=== PATIENT | female | born 1970 | race Caucasian/White ===

== ENCOUNTER 2019-10-29 20:02 | Inpatient (IN) | payer OTHER ==
[~2019-10-29] VITALS: Ht 167.6 cm; Wt 64.1 kg
[2019-10-29 20:07] VITALS: BP 143/72
--- NOTE | 2019-10-29 20:19 | NUR ---
PATIENT WAS GIVEN DIRECTION TO TAKE INHALE DEEP FOR 5 SECONDS AND EXHALE FOR 5 SECONDS. THIS HAS HELPED THE PATIENT WITH HER ANXIETY, TREMORS, AND CHEST PAIN. PATIENT EASILY DISTRACTED FROM ACTIVITY AND IS FREQUENTLY REMINDED TO CONTINUE.
[2019-10-29 20:23] LABS: BASO % 0.1 % (0.0-1.0); EOS % 0.1 % (1.0-4.0); HEMATOCRIT 41.7 % (37.0-47.0); HEMOGLOBIN 14.6 g/dl (12.0-16.0); LYMPH # 1.7 10*3/uL (1.3-4.4); MEAN CELL VOLUME 91.2 fl (81.0-99.0); MEAN CORPUSCULAR HGB 31.9 pg (27.0-31.0); MEAN PLATELET VOLUME 11.3 fl (9.6-12.3); MONO # 0.8 10*3/uL (0.1-1.0); MONO % 11.5 % (3.0-9.0); NEUT # 4.4 10*3/uL (2.3-7.9); PLATELET COUNT AUTOMATED 285 10*3/uL (130-400); RED BLOOD COUNT 4.57 10*6/uL (4.10-5.10); RED CELL DISTRI WIDTH 13.3 % (0-14.5)
[2019-10-29 20:35] LABS: ACT PARTIAL THROMBO TIME 23.3 SECONDS (20.0-32.1)
[2019-10-29 20:47] VITALS: BP 130/56
[2019-10-29 21:07] LABS: ALBUMIN 4.3 gm/dl (3.1-4.5); BUN 9 mg/dl (7-24); CHLORIDE 103 mmol/L (98-107); CREATININE 0.68 mg/dL (0.55-1.02); POTASSIUM 3.4 mmol/L (3.5-5.1); SGOT/AST 39 IU/L (3-35); SGPT/ALT 38 U/L (12-78); SODIUM 137 mmol/L (136-145); TOTAL PROTEIN 8.2 gm/dL (6.4-8.2)
[2019-10-29 21:10] LABS: ALKALINE PHOSPHATASE 56 U/L (45-117)
[2019-10-29 21:11] LABS: TROPONIN I < 0.015 ng/ml (<0.045)
--- NOTE | 2019-10-29 21:23 | NUR ---
PATIENT MEDICATED AND EDUCATED ON TRANSFER TO [facility]. PATIENT STATES THAT HE UNDERSTANDS. ALSO EDUCATED PATIENT ON NEED FOR URINE PER MD PATIENT STATES THAT HE UNDERSTANDS AND IS TRYING.
[2019-10-29 21:42] VITALS: BP 145/77
--- NOTE | 2019-10-29 21:43 | NUR ---
PATIENT IS MUCH MORE RELAXED NOW AFTER TAKING ATIVAN. NO CONCERNS ATT HIS TIME FROM THE PATIENT.
[2019-10-29 22:33] VITALS: BP 140/82
--- NOTE | 2019-10-29 22:33 | NUR ---
PATIENT RESTING IN BED WITH NO CONCERNS NOTED. PATIENT MUCH MORE RELXED AT THIS TIME.
[2019-10-30] VITALS: BP 131/66
--- NOTE | 2019-10-30 00:41 | NUR ---
ATTEMPTS MADE BY THIS RN TO ESTABLISH IV ACCESS IN PT RIGHT AND LEFT AC FOR CT TESTING.UNABLE TO ESTABLISH IV ACCESS AT THIS TIME.
[2019-10-30 01:30] VITALS: BP 131/66
--- NOTE | 2019-10-30 01:30 | NUR ---
A 49, admitted to , under the services of ZULEMA Maldonado DO with a diagnosis of CHEST PAIN OF UNCERTAIN ETIOLOGY. Chief complaint is MULTIPLE COMPLAINTS. Patient arrived via stretcher from ER. Monitor applied. Initial assessment completed. Vital signs taken and recorded. ZULEMA MALDONADO DO notified of admission to the unit. Orders received. See assessment for past medical history, medications and allergies. Patient and/or family oriented to unit. [facility] 4TH FLOOR visitation policy reviewed. Clothing/patient valuable form completed. JENNIFER HAQ
--- NOTE | 2019-10-30 01:45 | NUR ---
NOTIFIED [facility] OF NEW CONSULT
--- NOTE | 2019-10-30 02:30 | NUR ---
NOTIFIED DR. HAQ PATIENT IS UNABLE TO HAVE CTA. UNBALE TO GET A IV IN THE AC. NO NEW ORDERS RECEIVED. WILL CONTINUE TO MONITOR.
[2019-10-30 06:17] LABS: EOS % 0.6 % (1.0-4.0); HEMATOCRIT 37.5 % (37.0-47.0); HEMOGLOBIN 12.4 g/dl (12.0-16.0); LYMPH # 1.4 10*3/uL (1.3-4.4); LYMPH % 25.6 % (27.0-41.0); MEAN CELL VOLUME 94.2 fl (81.0-99.0); MEAN CORPUSCULAR HGB 31.2 pg (27.0-31.0); MEAN CORPUSCULAR HGB CONC 33.1 g/dl (33.0-37.0); MEAN PLATELET VOLUME 11.7 fl (9.6-12.3); MONO # 0.6 10*3/uL (0.1-1.0); MONO % 10.1 % (3.0-9.0); NEUT # 3.4 10*3/uL (2.3-7.9); NEUT % 63.5 % (47.0-73.0); PLATELET COUNT AUTOMATED 233 10*3/uL (130-400); RED BLOOD COUNT 3.98 10*6/uL (4.10-5.10); RED CELL DISTRI WIDTH 13.4 % (0-14.5); WHITE BLOOD COUNT 5.4 10*3/uL (4.8-10.8)
[2019-10-30 06:29] LABS: BUN 10 mg/dl (7-24); CHLORIDE 109 mmol/L (98-107); CHOLESTEROL 131 mg/dL (<200); CREATININE 0.46 mg/dL (0.55-1.02); HDL CHOLESTEROL 49 mg/dl (40-60); LDL CHOLESTEROL 74 mg/dL (9-159); PHOSPHOROUS 3.3 mg/dL (2.5-4.9); POTASSIUM 3.8 mmol/L (3.5-5.1); SODIUM 141 mmol/L (136-145); TRIGLYCERIDES 40 mg/dl (<150); VLDL CHOLESTEROL 8 mg/dL (6-40)
[2019-10-30] MEDS ORDERED: ASPIRIN CHEWABL81 MG PO (06:35)
--- NOTE | 2019-10-30 06:35 | NUR ---
MED REC UP TO DATE
[2019-10-30 07:41] LABS: VITAMIN D, 25-HYDROXY 36.1 ng/mL (30-100)
[2019-10-30 08:00] VITALS: BP 142/84
--- NOTE | 2019-10-30 08:30 | NUR ---
PT RESTING IN BED. VISITOR AT HER SIDE. NO C/O AT THIS TIME. TOLERATED ROUTINE MED WITH NO PROBLEM. CALL LIGHT IN REACH. SEE SHIFT ASSESSMENT.
--- NOTE | 2019-10-30 09:00 | NUR ---
Clinical Molecular Geneticist in to talk to patient. Patient states lives at home with jadyn. There are few steps in the home. Physician: non e Pharmacy: none Home health services: none Patient's level of ADLs: INDEPENDENT Patient has working utilities: all working DME: none Follow-up physician's appointment after d/c: will be made by hospitalist nurse director upon discharge Does patient want to access PORTAL?: no Discharge plan discussed with patient, jadyn present, she states she lives at home with jadyn, she is independent in adls and ambulation, she doesn't drive but her fiance does, she states she will return home when medically stable, she stated she doesn't have a doctor and is unable to afford medications, educated her that she will be given a list of doctors she can choose from to follow up with, she was also educated that she could have her prescriptions filled in the hospital pharmacy for a few dollars a script, patient would like to have her prescriptions filled here, patient denies any other needs. POLLY ARRIETA
[2019-10-30 12:00] VITALS: BP 143/71
--- NOTE | 2019-10-30 13:30 | NUR ---
INFORMED CONSENT OBTAINED FOR EXERCISE CARDIOLITE STRESS TEST WITH DR. KRAUSE. RESTING EKG NSR WITH A SUPINE HR OF 65 WITH BP OF 128/90 AND HR OF 90 WITH BP OF 124/94 IN STANDING POSITION. STRESS TEST SWITCHED FROM LEXISCAN TO EXERCISE CARDIOLITE BECAUSE PT HAD A COFFEE THIS AM. PRIOR TO EXERCISE HAS C/O NAUSEA AND FEELING WEAK. PT COMPLETED 4:05 OF A BRIONNA PROTOCOL WITH COMPLETION OF 1:05 OF STAGE II AT 2.5 MPH AND 12% GRADE. REACHED A PEAK HR OF 152 WHICH IS 89% OF PREDICTED MAX WITH A PEAK BP OF 164/94. TEST TERMINATED BECAUSE OF FATIGUE AND WEAKNESS. HAD NO CHEST PAIN. DEVELOPED [address] DEPRESSION IN LEADS II,III,AVF AND V4-V6. HAS A LIMITED EXERCISE CAPACITY. LAST RECOVERY HR OF 100 WITH BP OF 130/94. TO NUCLEAR MEDICINE IN STABLE CONDITION FOR SCANNING.
[2019-10-30 16:00] VITALS: BP 131/62
[2019-10-30 20:00] VITALS: BP 140/73
--- NOTE | 2019-10-30 20:00 | NUR ---
PATIENT RESING IN BED. VOICES NO COMPLAINTS. RESPIRATIONS EASY NON LABORED. BED IN LOWEST POSITION. CALL LIGHT WITHIN REACH. WILL CONTINUE TO MONITOR.
[2019-10-31] VITALS: BP 133/87
--- NOTE | 2019-10-31 04:00 | NUR ---
PATIENT SLEEPING. NO SIGNS OF DISTRESS. BED IN LOWEST POSITION,CALL LIGHT WITHIN REACH WILL CONTINUE TO MONITOR.
[2019-10-31 08:00] VITALS: BP 142/80
[2019-10-31 12:00] VITALS: BP 128/64
[2019-10-31] MEDS ORDERED: SERTRALINE HYDR25 MG PO (12:39)
--- NOTE | 2019-10-31 15:30 | NUR ---
Discharge instructions reviewed with patient/family. Patient receptive and verbalizes understanding. Follow-up care arranged. Written instructions given to patient/family. HE[place]OCK DISCONTINUED. PATIENT AMBULATORY OFF FLOOR. YADI CABRERA
== END 2019-10-31 16:34 | disposition home or self-care (01) | DRG 756 ==
LOC: ED 20:02 → 4E 23:12 → EDHOLD 23:12 → 4E 23:30
PROVIDERS: Emergency Medicine Emergency Medical Services; Internal Medicine; ADMIT Family Medicine
DX: F41.9 Anxiety disorder, unspecified (principal); K50.90 Crohn's disease, unspecified, without complications; R00.0 Tachycardia, unspecified; E87.6 Hypokalemia; I10 Essential (primary) hypertension; R73.9 Hyperglycemia, unspecified; E89.0 Postprocedural hypothyroidism; R74.0 Nonspecific elevation of levels of transaminase and lactic acid dehydrogenase [LDH]; Z88.5 Allergy status to narcotic agent; Z90.49 Acquired absence of other specified parts of digestive tract; Z87.891 Personal history of nicotine dependence; Z82.49 Family history of ischemic heart disease and other diseases of the circulatory system; Z82.3 Family history of stroke; Z86.718 Personal history of other venous thrombosis and embolism; Z79.82 Long term (current) use of aspirin

== ENCOUNTER → 2019-11-19 | Outpatient (CLI) | payer OTHER ==
[~2019-11-19] MED LIST: ASPIRIN CHEWABL81 MG PO; SERTRALINE HYDR25 MG PO
== END | disposition home or self-care (01) ==
LOC: RESCLI 01:30
DX: I82.409 Acute embolism and thrombosis of unspecified deep veins of unspecified lower extremity (principal); K50.90 Crohn's disease, unspecified, without complications; I10 Essential (primary) hypertension; F32.9 Major depressive disorder, single episode, unspecified; G89.29 Other chronic pain; Z90.49 Acquired absence of other specified parts of digestive tract; Z90.89 Acquired absence of other organs; Z90.10 Acquired absence of unspecified breast and nipple

== ENCOUNTER → 2019-12-02 | Outpatient (CLI) | payer OTHER | END | disposition home or self-care (01) | LOC: MAMMO 08:30 | DX: Z12.31 Encounter for screening mammogram for malignant neoplasm of breast (principal) ==

== ENCOUNTER → 2019-12-24 | Outpatient (CLI) | payer OTHER | END | disposition home or self-care (01) | LOC: RESCLI 00:51 | DX: N82.4 Other female intestinal-genital tract fistulae (principal); E55.9 Vitamin D deficiency, unspecified; F32.9 Major depressive disorder, single episode, unspecified; G89.29 Other chronic pain; I82.409 Acute embolism and thrombosis of unspecified deep veins of unspecified lower extremity; R92.8 Other abnormal and inconclusive findings on diagnostic imaging of breast; Z90.49 Acquired absence of other specified parts of digestive tract; Z90.89 Acquired absence of other organs; Z87.891 Personal history of nicotine dependence ==

== ENCOUNTER → 2020-01-06 | Outpatient (CLI) | payer OTHER | END | disposition home or self-care (01) | LOC: MAMMO 08:05 | DX: R92.8 Other abnormal and inconclusive findings on diagnostic imaging of breast (principal) ==

== ENCOUNTER 2020-02-24 20:06 | Emergency (ER) | payer OTHER ==
[~2020-02-24] VITALS: Ht 167.6 cm; Wt 71.7 kg
[2020-02-24] MEDS ORDERED: ANAPROX DS550 MG PO (20:47)
[2020-02-24] MEDS ORDERED: CLINDAMYCIN HC300 MG PO (20:47)
== END 2020-02-24 20:53 | disposition home or self-care (01) ==
LOC: ED 20:06
DX: K08.89 Other specified disorders of teeth and supporting structures (principal); F41.9 Anxiety disorder, unspecified; Z90.49 Acquired absence of other specified parts of digestive tract

== ENCOUNTER → 2020-06-21 | Outpatient (CLI) | payer OTHER, MEDICAID ==
[~2020-06-21] MED LIST changes: +ANAPROX DS550 MG PO; +CLINDAMYCIN HC300 MG PO
== END | disposition home or self-care (01) ==
LOC: RESCLI 14:16
DX: R92.8 Other abnormal and inconclusive findings on diagnostic imaging of breast (principal); K21.9 Gastro-esophageal reflux disease without esophagitis; K50.813 Crohn's disease of both small and large intestine with fistula; F32.9 Major depressive disorder, single episode, unspecified; E03.9 Hypothyroidism, unspecified; E55.9 Vitamin D deficiency, unspecified; K04.7 Periapical abscess without sinus

== ENCOUNTER → 2020-07-13 | Outpatient (CLI) | payer OTHER, MEDICAID ==
[2020-07-13 14:25] LABS: BASO % 0.2 % (0.0-1.0); EOS % 0.5 % (1.0-4.0); LYMPH # 1.6 10*3/uL (1.3-4.4); LYMPH % 25.2 % (27.0-41.0); MEAN PLATELET VOLUME 11.5 fl (9.6-12.3); MONO # 0.6 10*3/uL (0.1-1.0); MONO % 9.4 % (3.0-9.0); NEUT # 4.2 10*3/uL (2.3-7.9); NEUT % 64.2 % (47.0-73.0); PLATELET COUNT AUTOMATED 331 10*3/uL (130-400); WHITE BLOOD COUNT 6.5 10*3/uL (4.8-10.8)
[2020-07-13 14:59] LABS: ALBUMIN 4.3 gm/dl (3.1-4.5); ALKALINE PHOSPHATASE 57 U/L (45-117); BUN 19 mg/dl (7-24); CHLORIDE 107 mmol/L (98-107); CREATININE 0.58 mg/dL (0.55-1.02); POTASSIUM 3.6 mmol/L (3.5-5.1); SGOT/AST 25 IU/L (3-35); SGPT/ALT 38 U/L (12-78); SODIUM 138 mmol/L (136-145); TOTAL PROTEIN 8.4 gm/dL (6.4-8.2)
== END | disposition home or self-care (01) ==
LOC: LAB 13:52
PROVIDERS: Student in an Organized Health Care Education/Training Program; ATTEND Internal Medicine Nephrology
DX: E03.9 Hypothyroidism, unspecified (principal); E55.9 Vitamin D deficiency, unspecified; F32.9 Major depressive disorder, single episode, unspecified; K50.813 Crohn's disease of both small and large intestine with fistula

== ENCOUNTER → 2020-07-27 | Outpatient (CLI) | payer OTHER, MEDICAID | END | disposition home or self-care (01) | LOC: CT 08:30 | PROVIDERS: ATTEND Surgery | DX: K50.90 Crohn's disease, unspecified, without complications (principal); K63.89 Other specified diseases of intestine; N85.8 Other specified noninflammatory disorders of uterus; K86.89 Other specified diseases of pancreas ==

== ENCOUNTER → 2020-09-12 | Outpatient (CLI) | payer OTHER, MEDICAID ==
[~2020-09-12] MED LIST changes: +NO HOME MEDICATION
== END | disposition home or self-care (01) ==
LOC: COVID19 00:49
PROVIDERS: ATTEND Surgery
DX: Z01.812 Encounter for preprocedural laboratory examination (principal); Z20.828 Contact with and (suspected) exposure to other viral communicable diseases

== ENCOUNTER 2020-09-15 16:26 | Emergency (ER) | payer OTHER, MEDICAID ==
[~2020-09-15] VITALS: Ht 167.6 cm; Wt 70.3 kg
[2020-09-15 17:27] LABS: BASO % 0.2 % (0.0-1.0); EOS # 0.1 10*3/uL (0.0-0.4); EOS % 0.9 % (1.0-4.0); HEMATOCRIT 40.1 % (37.0-47.0); LYMPH # 1.5 10*3/uL (1.3-4.4); LYMPH % 27.6 % (27.0-41.0); MEAN CELL VOLUME 91.3 fl (81.0-99.0); MEAN CORPUSCULAR HGB 30.8 pg (27.0-31.0); MEAN CORPUSCULAR HGB CONC 33.7 g/dl (33.0-37.0); MEAN PLATELET VOLUME 10.8 fl (9.6-12.3); MONO # 0.6 10*3/uL (0.1-1.0); MONO % 10.3 % (3.0-9.0); NEUT # 3.3 10*3/uL (2.3-7.9); NEUT % 60.8 % (47.0-73.0); PLATELET COUNT AUTOMATED 278 10*3/uL (130-400); RED BLOOD COUNT 4.39 10*6/uL (4.10-5.10); RED CELL DISTRI WIDTH 12.8 % (0-14.5); WHITE BLOOD COUNT 5.4 10*3/uL (4.8-10.8)
[2020-09-15 17:42] LABS: ACT PARTIAL THROMBO TIME 25.7 SECONDS (20.0-32.1)
[2020-09-15 17:44] LABS: ALBUMIN 3.8 gm/dl (3.1-4.5); ALKALINE PHOSPHATASE 51 U/L (45-117); BUN 10 mg/dl (7-24); CHLORIDE 108 mmol/L (98-107); CREATININE 0.58 mg/dL (0.55-1.02); POTASSIUM 3.6 mmol/L (3.5-5.1); SGOT/AST 25 IU/L (3-35); SGPT/ALT 36 U/L (12-78); SODIUM 140 mmol/L (136-145); TOTAL PROTEIN 7.2 gm/dL (6.4-8.2)
== END 2020-09-15 18:38 | disposition home or self-care (01) ==
LOC: ED 16:26
PROVIDERS: Nurse Practitioner Family
DX: M71.38 Other bursal cyst, other site (principal); Z88.5 Allergy status to narcotic agent

== ENCOUNTER → 2020-09-16 | Day surgery (SDC) | payer OTHER, MEDICAID ==
[~2020-09-16] VITALS: Ht 167.6 cm; Wt 70.3 kg
[2020-09-16 10:00] VITALS: BP 155/71
[2020-09-16 11:58] VITALS: BP 116/65
[2020-09-16 12:08] VITALS: BP 122/66
[2020-09-16 12:28] VITALS: BP 131/46
[2020-09-16 12:43] VITALS: BP 127/60
[2020-09-16 12:59] VITALS: BP 103/59
== END ==
LOC: SDC 08-12 08:45
PROVIDERS: ATTEND Surgery
DX: Z12.11 Encounter for screening for malignant neoplasm of colon (principal); K50.90 Crohn's disease, unspecified, without complications; K63.5 Polyp of colon; K29.50 Unspecified chronic gastritis without bleeding; K52.9 Noninfective gastroenteritis and colitis, unspecified; N82.4 Other female intestinal-genital tract fistulae; I10 Essential (primary) hypertension; J45.909 Unspecified asthma, uncomplicated; K21.9 Gastro-esophageal reflux disease without esophagitis; E03.9 Hypothyroidism, unspecified; F41.9 Anxiety disorder, unspecified; Z90.49 Acquired absence of other specified parts of digestive tract; Z90.89 Acquired absence of other organs; Z86.718 Personal history of other venous thrombosis and embolism; Z98.890 Other specified postprocedural states

== ENCOUNTER → 2020-10-28 | Outpatient (CLI) | payer OTHER, MEDICAID | END | disposition home or self-care (01) | LOC: RESCLI 00:23 | PROVIDERS: ATTEND Student in an Organized Health Care Education/Training Program | DX: K50.90 Crohn's disease, unspecified, without complications (principal); K21.9 Gastro-esophageal reflux disease without esophagitis; E55.9 Vitamin D deficiency, unspecified; F41.1 Generalized anxiety disorder; F32.9 Major depressive disorder, single episode, unspecified; E03.9 Hypothyroidism, unspecified ==

== ENCOUNTER → 2021-01-27 | Outpatient (CLI) | payer OTHER, MEDICAID ==
[2021-01-27 15:55] LABS: BASO % 0.3 % (0.0-1.0); EOS % 0.3 % (1.0-4.0); HEMATOCRIT 46.8 % (37.0-47.0); LYMPH # 1.5 10*3/uL (1.3-4.4); LYMPH % 19.3 % (27.0-41.0); MEAN CELL VOLUME 94.2 fl (81.0-99.0); MEAN CORPUSCULAR HGB 31.2 pg (27.0-31.0); MEAN CORPUSCULAR HGB CONC 33.1 g/dl (33.0-37.0); MEAN PLATELET VOLUME 11.4 fl (9.6-12.3); MONO # 0.6 10*3/uL (0.1-1.0); MONO % 7.3 % (3.0-9.0); NEUT # 5.8 10*3/uL (2.3-7.9); NEUT % 72.4 % (47.0-73.0); PLATELET COUNT AUTOMATED 358 10*3/uL (130-400); RED BLOOD COUNT 4.97 10*6/uL (4.10-5.10); RED CELL DISTRI WIDTH 13.1 % (0-14.5)
[2021-01-27 16:29] LABS: ALBUMIN 4.4 gm/dl (3.1-4.5); BUN 19 mg/dl (7-24); CHLORIDE 106 mmol/L (98-107); CREATININE 0.65 mg/dL (0.55-1.02); POTASSIUM 4.1 mmol/L (3.5-5.1); SGOT/AST 36 IU/L (3-35); SGPT/ALT 46 U/L (12-78); SODIUM 138 mmol/L (136-145)
[2021-01-27 16:38] LABS: ALKALINE PHOSPHATASE 58 U/L (45-117); TOTAL PROTEIN 8.3 gm/dL (6.4-8.2)
== END | disposition home or self-care (01) ==
LOC: RESCLI 02:43
PROVIDERS: Student in an Organized Health Care Education/Training Program; ATTEND Internal Medicine
DX: R05 Cough (principal); I10 Essential (primary) hypertension; K50.918 Crohn's disease, unspecified, with other complication; E03.9 Hypothyroidism, unspecified; K21.9 Gastro-esophageal reflux disease without esophagitis; Z90.49 Acquired absence of other specified parts of digestive tract; Z98.890 Other specified postprocedural states; Z79.899 Other long term (current) drug therapy

== ENCOUNTER → 2021-03-08 | Outpatient (CLI) | payer OTHER, MEDICAID ==
[2021-03-08 11:32] LABS: BASO % 0.2 % (0.0-1.0); EOS # 0.1 10*3/uL (0.0-0.4); HEMATOCRIT 42.7 % (37.0-47.0); LYMPH # 1.2 10*3/uL (1.3-4.4); LYMPH % 21.6 % (27.0-41.0); MEAN CELL VOLUME 94.9 fl (81.0-99.0); MEAN CORPUSCULAR HGB 31.1 pg (27.0-31.0); MEAN CORPUSCULAR HGB CONC 32.8 g/dl (33.0-37.0); MEAN PLATELET VOLUME 11.6 fl (9.6-12.3); MONO # 0.6 10*3/uL (0.1-1.0); MONO % 9.7 % (3.0-9.0); NEUT # 3.9 10*3/uL (2.3-7.9); NEUT % 67.2 % (47.0-73.0); PLATELET COUNT AUTOMATED 290 10*3/uL (130-400); RED CELL DISTRI WIDTH 13.5 % (0-14.5); WHITE BLOOD COUNT 5.8 10*3/uL (4.8-10.8)
[2021-03-10 12:07] LABS: SACCHAROMYCES CEREVISIAE IGA <20.0 Units (0.0-24.9)
[2021-03-10 19:06] LABS: ATYPICAL PANCA <1:20 titer (Neg:<1:20)
== END | disposition home or self-care (01) ==
LOC: LAB 10:55
PROVIDERS: ATTEND Internal Medicine Gastroenterology
DX: K50.90 Crohn's disease, unspecified, without complications (principal); K92.1 Melena

== ENCOUNTER → 2021-04-24 | Outpatient (CLI) | payer OTHER, MEDICAID | END | disposition home or self-care (01) | LOC: COVVAC 10:05 → COVID19 10:05 | PROVIDERS: ATTEND Internal Medicine Gastroenterology | DX: Z01.812 Encounter for preprocedural laboratory examination (principal); Z20.822 Contact with and (suspected) exposure to COVID-19 ==

== ENCOUNTER → 2021-05-10 | Outpatient (CLI) | payer OTHER, MEDICAID | END | disposition home or self-care (01) | LOC: COVID19 10:00 | PROVIDERS: ATTEND Internal Medicine Gastroenterology | DX: Z01.812 Encounter for preprocedural laboratory examination (principal); Z20.822 Contact with and (suspected) exposure to COVID-19 ==

== ENCOUNTER → 2021-05-19 | Outpatient (CLI) | payer OTHER, MEDICAID | END | disposition home or self-care (01) | LOC: RESCLI 00:41 | PROVIDERS: ATTEND Internal Medicine | DX: R87.612 Low grade squamous intraepithelial lesion on cytologic smear of cervix (LGSIL) (principal); K21.9 Gastro-esophageal reflux disease without esophagitis; I10 Essential (primary) hypertension; B97.7 Papillomavirus as the cause of diseases classified elsewhere; N82.3 Fistula of vagina to large intestine; E03.9 Hypothyroidism, unspecified; K50.90 Crohn's disease, unspecified, without complications; I82.409 Acute embolism and thrombosis of unspecified deep veins of unspecified lower extremity; F41.1 Generalized anxiety disorder; Z90.49 Acquired absence of other specified parts of digestive tract; Z98.890 Other specified postprocedural states; Z87.891 Personal history of nicotine dependence; Z88.8 Allergy status to other drugs, medicaments and biological substances ==

== ENCOUNTER → 2021-09-25 | Outpatient (CLI) | payer OTHER, MEDICAID | END | disposition home or self-care (01) | LOC: RESCLI 01:27 | PROVIDERS: ATTEND Internal Medicine Nephrology | DX: K50.90 Crohn's disease, unspecified, without complications (principal); K04.7 Periapical abscess without sinus; I10 Essential (primary) hypertension; N82.3 Fistula of vagina to large intestine; R92.8 Other abnormal and inconclusive findings on diagnostic imaging of breast; I82.409 Acute embolism and thrombosis of unspecified deep veins of unspecified lower extremity; K21.9 Gastro-esophageal reflux disease without esophagitis; Z79.899 Other long term (current) drug therapy; Z87.891 Personal history of nicotine dependence; Z98.890 Other specified postprocedural states; Z88.9 Allergy status to unspecified drugs, medicaments and biological substances ==

== ENCOUNTER → 2021-10-06 | Outpatient (CLI) | payer OTHER, MEDICAID ==
[2021-10-06 10:45] LABS: BASO % 0.2 % (0.0-1.0); EOS % 0.8 % (1.0-4.0); HEMATOCRIT 44.4 % (37.0-47.0); LYMPH # 1.3 10*3/uL (1.3-4.4); LYMPH % 24.4 % (27.0-41.0); MEAN CELL VOLUME 97.2 fl (81.0-99.0); MEAN CORPUSCULAR HGB 32.2 pg (27.0-31.0); MEAN CORPUSCULAR HGB CONC 33.1 g/dl (33.0-37.0); MEAN PLATELET VOLUME 11.1 fl (9.6-12.3); MONO # 0.5 10*3/uL (0.1-1.0); MONO % 8.9 % (3.0-9.0); NEUT # 3.4 10*3/uL (2.3-7.9); NEUT % 65.3 % (47.0-73.0); PLATELET COUNT AUTOMATED 314 10*3/uL (130-400); RED BLOOD COUNT 4.57 10*6/uL (4.10-5.10); RED CELL DISTRI WIDTH 13.4 % (0-14.5); WHITE BLOOD COUNT 5.2 10*3/uL (4.8-10.8)
[2021-10-06 10:55] LABS: INTERNATIONAL NORM RATIO 1.7 (2.0-3.5)
[2021-10-06 11:00] LABS: ALBUMIN 3.9 gm/dl (3.1-4.5); ALKALINE PHOSPHATASE 61 U/L (45-117); BUN 10 mg/dl (7-24); CHLORIDE 107 mmol/L (98-107); CHOLESTEROL 204 mg/dL (<200); CREATININE 0.55 mg/dL (0.55-1.02); LDL CHOLESTEROL 115 mg/dL (9-159); POTASSIUM 3.9 mmol/L (3.5-5.1); SGOT/AST 23 IU/L (3-35); SGPT/ALT 34 U/L (12-78); SODIUM 139 mmol/L (136-145); TOTAL PROTEIN 7.6 gm/dL (6.4-8.2); TRIGLYCERIDES 102 mg/dl (<150)
== END | disposition home or self-care (01) ==
LOC: LAB 10:10
PROVIDERS: Internal Medicine; ATTEND Internal Medicine
DX: I82.409 Acute embolism and thrombosis of unspecified deep veins of unspecified lower extremity (principal); I10 Essential (primary) hypertension; K50.90 Crohn's disease, unspecified, without complications; Z79.01 Long term (current) use of anticoagulants

== ENCOUNTER → 2021-12-07 | Outpatient (CLI) | payer OTHER ==
[2021-12-07 14:42] LABS: INTERNATIONAL NORM RATIO 2.5 (2.0-3.5)
== END | disposition home or self-care (01) ==
LOC: LAB 14:03
PROVIDERS: Internal Medicine; ATTEND Internal Medicine
DX: I82.409 Acute embolism and thrombosis of unspecified deep veins of unspecified lower extremity (principal)